=== PATIENT | male | born 1965 | race Caucasian/White ===

== ENCOUNTER 2019-02-09 07:35 | Day surgery (SDC) | payer OTHER, BC ==
[~2019-02-09] VITALS: Ht 185.4 cm; Wt 140.5 kg
[~2019-02-09 07:35] MED LIST: CYAN2500 PO; LIDOCAINE 1% MDV 20ML VIAL SQ PRN; LISI10TA4 PO; LISI40TA PO; LR 1,000 ML IV ONE; METO1TAB33 PO; PROPOFOL 200 MG/20 ML VIAL As Ordered ONE; SYNT112T2 PO; SYNT150T PO; VITA250T50 PO; ceFAZolin SOD 1 GM in D5W MINI-BAG PLUS 50 ML IV ONE; vitamin b 12 PO
[2019-02-09 08:29] LABS: BLOOD UREA NITROGEN 11 MG/DL (7-18); CALCIUM LEVEL 8.7 MG/DL (8.5-10.1); CARBON DIOXIDE LEVEL 30 MEQ/L (21-32); CHLORIDE LEVEL 107 MEQ/L (98-107); CREATININE FOR GFR 1.09 MG/DL (0.70-1.30); GLOMERULAR FILTRATION RATE > 60.0 (>56); GLUCOSE, FASTING 81 MG/DL (70-100); POTASSIUM SERUM 4.5 MEQ/L (3.5-5.1); SODIUM LEVEL 141 MEQ/L (136-145)
[2019-02-09] MEDS ORDERED: ONDANSETRON 4MG/2ML VIAL (J2405) As Ordered ONE (08:51)
[2019-02-09] MEDS ORDERED: PROPOFOL 200 MG/20 ML VIAL As Ordered ONE (08:51)
[2019-02-09] MEDS ORDERED: dexameTHASONE 4 MG/ML 1ML VIAL (J1100) As Ordered ONE (08:51)
[2019-02-09] MEDS ORDERED: ROCURONIUM BROMIDE 50 MG/5 ML VIAL As Ordered ONE ×3 (08:51→11:53)
[2019-02-09] MEDS ORDERED: LIDOCAINE 2% INJ 100 MG/5 ML SDV (FOR ANES.) As Ordered ONE (08:51)
[2019-02-09] MEDS ORDERED: fentaNYL 100 MCG/2 ML INJECTION (J3010) As Ordered ONE ×2 (08:52→10:12)
[2019-02-09] MEDS ORDERED: MIDAZOLAM INJ 2 MG/2 ML VIAL (J2250) As Ordered ONE (08:52)
[2019-02-09] MEDS ORDERED: BUPIVACAINE/EPIN 0.25% 30 ML VIAL As Ordered ONE (09:35)
[2019-02-09] MEDS ORDERED: ACETAMINOPHEN 1000MG 100ML IV BTL (OFIRMEV) (J0131 PER 10MG) As Ordered ONE (10:36)
[2019-02-09] MEDS ORDERED: KETOROLAC 60 MG/2 ML VIAL (J1885) As Ordered ONE (10:36)
[2019-02-09] MEDS ORDERED: SUGAMMADEX SODIUM 500 MG/5 ML VIAL (BRIDION) As Ordered ONE (10:37)
[2019-02-09] MEDS ORDERED: BUPIVACAINE HCL 0.25% 10 ML VIAL As Ordered ONE (11:51)
[2019-02-09] MEDS ORDERED: BUPIVACAINE LIPOSOME/PF 1.3% 20ML VIAL (13.3MG/ML)(EXPAREL)(C9290 PER1MG) As Ordered ONE (11:52)
[2019-02-09] MEDS ORDERED: LR 1,000 ML IV SCH ×2 (12:15→12:30)
[2019-02-09] MEDS ORDERED: ONDANSETRON 4MG/2ML VIAL (J2405) IV PRN ×2 (12:15→12:30)
[2019-02-09] MEDS ORDERED: NORCO, ANEXSIA 5/325MG TABLET (HYDROcodone/ACETAMINOPHEN) PO PRN (12:15)
[2019-02-09] MEDS ORDERED: HYDROMORPHONE HCL 0.5 MG/ 0.5 ML SYRINGE (J1170 PER 1) IV PRN (12:30)
[2019-02-09] MEDS ORDERED: PERCOCET 5MG/325MG TAB PO PRN (12:30)
[2019-02-09] MEDS ORDERED: fentaNYL 100 MCG/2 ML INJECTION (J3010) IV PRN (12:30)
[2019-02-09 14:20] VITALS: BP 168/106
--- NOTE | 2019-02-09 20:49 | RO ---
DATE OF PROCEDURE: 02/09/2019 PREOPERATIVE DIAGNOSIS: Recurrent incisional hernia. POSTOPERATIVE DIAGNOSIS: Incisional hernia. OPERATIVE PROCEDURE: Laparoscopic incisional hernia repair with mesh (15 x 20 cm). SURGEON: Yosef Espinoza MD EDITORIAL MANAGER: Lili Montalvo (provided instrument exchange, assisted with retraction and the mesh placement). ANESTHESIA: General endotracheal anesthesia ESTIMATED BLOOD LOSS: Minimal. FLUIDS: Crystalloid. BRIEF PROCEDURE SUMMARY: The patient was brought to the operating room, was given general anesthesia. After adequate anesthesia was given, the patient was prepped and draped in the usual sterile fashion. Next, a right subcostal incision was made and the needle was placed into the abdominal cavity, although it seemed as though I was getting preperitoneal with this and thus an infraumbilical small incision was made and the Veress needle placed into the abdominal cavity and insufflated to 15 mm of pressure. A right subcostal 5 mm trocar as well as right lateral 5 mm trocars were placed under direct visualization. There were numerous adhesions along the midline which was omentum up against the anterior abdominal wall. These were taken down with harmonic scalpel and after taking down a great deal of this, the left lateral abdominal wall trocars were placed (two 5 mm trocars). Once these were placed dissection from a left side of the abdomen was also performed and all this was dissected out nicely and the abdominal wall was nicely dissected out. Within the hernia sac hernias there was mostly omentum. There was one area where the bowel had gone up into the hernia, I was able to bluntly dissect this down enough so that I was able on the superior side of this take down the fatty attachments with the harmonic scalpel. After all this was taken down further dissection in the epigastric area was performed, taking down the falciform ligament as well with the harmonic scalpel. Then a 12 mm trocar was placed through the midline incision and the mesh placed in this site. It was tacked into place with secure straps times two. The balloon was removed and all trocars removed under direct visualization after placing some Exparel and the appropriate area for a tap lock. All incisions then were closed with #4-0 Vicryl. Steri-Strips and a dry sterile dressing was applied. The patient was awakened, extubated, brought to the recovery room awake, alert and hemodynamically stable. Sponge and needle counts correct times two.
== END 2019-02-09 14:25 | disposition home or self-care (01) ==
LOC: M SDC 07:35
PROVIDERS: ATTEND Surgery
DX: K43.2 Incisional hernia without obstruction or gangrene (principal); I10 Essential (primary) hypertension; E03.9 Hypothyroidism, unspecified; G47.30 Sleep apnea, unspecified; Z79.899 Other long term (current) drug therapy; F17.220 Nicotine dependence, chewing tobacco, uncomplicated; Z98.84 Bariatric surgery status
CPT/HCPCS: 36415; 49656; 80048; 88302; C1781; C9290; J0131; J0690; J1100; J1885; J2250; J2405; J3010